=== PATIENT | female | born 1980 | race Caucasian/White ===

== ENCOUNTER 2022-05-10 06:24 | Day surgery (SDC) | payer OTHER ==
[2022-05-08 15:33] VITALS: BMI 23.3
[2022-05-10] MEDS ORDERED: CEFAZOLIN 2 GM VIAL ONE (07:20)
[2022-05-10] MEDS ORDERED: Lidocaine 1% MPF 2 ML VIAL ONE (07:20)
[2022-05-10] MEDS ORDERED: Sodium Chloride 0.9% 100 ML ONE (07:20)
[2022-05-10] MEDS ORDERED: SUGAMMADEX SODIUM 200 MG/2 ML VIAL ONE (07:30)
[2022-05-10] MEDS ORDERED: Propofol 500 MG/50 ML VIAL ONE (07:30)
[2022-05-10] MEDS ORDERED: HYDROmorphone 0.5 MG/0.5 ML SYRINGE ONE (07:30)
[2022-05-10] MEDS ORDERED: Midazolam HCl 2 mg/2 ml Vial ONE (08:02)
[2022-05-10] MEDS ORDERED: fentaNYL PF 100 MCG/2 ML SYRINGE ONE (08:02)
[2022-05-10] MEDS ORDERED: Rocuronium Bromide 10 MG/ML (10ML VIAL) ONE (08:05)
[2022-05-10] MEDS ORDERED: Esmolol 100 MG/10 ML VIAL ONE (08:05)
[2022-05-10] MEDS ORDERED: Dexamethasone 20 MG/5 ML VIAL ONE (08:05)
[2022-05-10] MEDS ORDERED: PROPOFOL 200 MG/20 ML VIAL ONE (08:05)
[2022-05-10] MEDS ORDERED: Lidocaine 1% PF 5 ML VIAL ONE (08:05)
[2022-05-10] MEDS ORDERED: Ketorolac Tromethamine 30 MG/ML VIAL ONE (08:05)
[2022-05-10] MEDS ORDERED: Ondansetron PF 4 MG/2 ML Vial ONE (08:05)
[2022-05-10 08:19] LABS: #Basophils 0.1 thou/uL (0.0-0.2); #Eosinphils 0.2 thou/uL (0.0-0.7); #Lymphocytes 2.2 thou/uL (1.20-3.40); #Monocytes 0.4 thou/uL (0.11-0.59); #Neutrophils 4.1 thou/uL (1.40-6.50); %Basophils 1.3 % (0.0-1.0); %Eosinophils 2.6 % (0.0-10.0); %Lymphocytes 31.6 % (21.0-51.0); %Monocytes 5.8 % (0.0-10.0); %Neutrophils 58.6 % (42.0-75.0); Hemoglobin 14.2 g/dL (12.0-16.0); Mean Corpuscular HGB CONC 34.5 g/dL (32.0-36.0); Mean Corpuscular Hemoglobin 35.8 pg (27.0-31.0); Platelet Count 220 10x3/uL (130-400); RBC Distribution Width 10.9 % (11.5-14.5); Red Blood Cell (RBC) Count 3.96 mill/uL (4.20-5.40)
[2022-05-10 08:25] LABS: Anion Gap 12 mmol/L (10-20); BUN (Urea Nitrogen) 10 mg/dL (7.0-18.7); Calc. Creatinine Clearance 104 mL/min (70-130); Calcium 9.2 mg/dL (7.8-10.44); Carbon Dioxide 21 mmol/L (22-29); Chloride 107 mmol/L (98-107); Estimated GFR 108; Glucose 81 mg/dL (70-105); Potassium 4.3 mmol/L (3.5-5.1); Sodium 136 mmol/L (136-145)
[2022-05-10] MEDS ORDERED: Meperidine HCl/PF 25 MG/ML VIAL ONE (09:15)
[2022-05-10] MEDS ORDERED: FENTANYL 50 MCG/ML 1 ML VIAL ONE ×4 (09:21→10:08)
[2022-05-10] MEDS ORDERED: hydrALAZINE 20 MG/ML VIAL ONE (09:54)
[2022-05-10] MEDS ORDERED: HYDROcodone/Acetaminophen 5/325 mg Tablet ONE (10:50)
== END 2022-05-10 11:22 | disposition home or self-care (01) ==
LOC: SDC 06:24
PROVIDERS: ATTEND Neurological Surgery
PROC: 0RG10A0 Fusion of Cervical Vertebral Joint with Interbody Fusion Device, Anterior Approach, Anterior Column, Open Approach (ICD-10-PCS; principal; 2022-05-10)
DX: M50.122 Cervical disc disorder at C5-C6 level with radiculopathy (principal); M48.02 Spinal stenosis, cervical region; I10 Essential (primary) hypertension; M19.90 Unspecified osteoarthritis, unspecified site; Z79.899 Other long term (current) drug therapy; Z88.8 Allergy status to other drugs, medicaments and biological substances
CPT/HCPCS: 80048; 85025; C1713; J0360; J1100; J1170; J1885; J2175; J2250; J2405; J2704; J3010; J3490